=== PATIENT | female | born 1965 ===

== ENCOUNTER 2017-12-06 14:19 | Inpatient (IN) | payer OTHER ==
[~2017-12-06] VITALS: Ht 162.6 cm; Wt 59.9 kg
--- NOTE | 2017-12-06 19:14 | NUR ---
Pt arrived on unit via ambulance, on gurney accompanied by 2 EMT's. KEISHA x 4, at bedside. Verbally responsive and able to make needs known. No acute distress noted. Admitted for R hip fracture with mariam placement on 12/03/2017 s/p fall. All safety measures and fall precautions maintained. Call light and all personal belongings within reach. C/O right hip pain 5/[address] Tamayo and Dr. Oh made aware of pt arrival and Dr. Oh made aware of med reconciliation. V/S upon admission 115/75, HR 99, 98.3 F, RR 20, 96% RA. Addendum: 12/07/17 at 0046 by Sheldon Rai RN Continuing contact isolation for MRSA nares from [facility].
[2017-12-06 20:00] VITALS: BP 115/75
[2017-12-06] MEDS ORDERED: Z GUARD REMEDY PASTE 57 GM TUBE TOP PRN (20:00)
[2017-12-06] MEDS ORDERED: MAG-55 PO (20:23)
[2017-12-06] MEDS ORDERED: SENN-18 PO (20:23)
[2017-12-06] MEDS ORDERED: ZOLP5TAB8 PO (20:23)
[2017-12-06] MEDS ORDERED: ZINC220C8 PO (20:23)
[2017-12-06] MEDS ORDERED: OXYC5TAB3 PO (20:23)
[2017-12-06] MEDS ORDERED: TIZA4TAB11 PO (20:23)
[2017-12-06] MEDS ORDERED: MAGN400O6 PO (20:23)
[2017-12-06] MEDS ORDERED: BACL20TA PO (20:23)
[2017-12-06] MEDS ORDERED: RIVA20TA PO (20:23)
[2017-12-06] MEDS ORDERED: MULT-24 PO (20:23)
[2017-12-06] MEDS ORDERED: PANT40TA2 PO (20:23)
[2017-12-06] MEDS ORDERED: ACET-2154 PO (20:23)
[2017-12-06] MEDS ORDERED: NICO-672 TD (20:23)
[2017-12-06] MEDS ORDERED: DOCU100C36 PO (20:23)
[2017-12-06] MEDS ORDERED: OXYB5SYR2 PO (20:23)
[2017-12-06] MEDS ORDERED: TRAM50TA2 PO (20:23)
[2017-12-06] MEDS ORDERED: ACETAMINOPHEN 325 MG TABLET PO PRN (23:15)
[2017-12-06] MEDS ORDERED: MAGNESIUM HYDROXIDE 30 ML LIQUID UDC PO PRN (23:15)
[2017-12-06] MEDS ORDERED: OXYCODONE HCL 5 MG TABLET PO PRN (23:15)
[2017-12-06] MEDS ORDERED: Medication Not On Formulary EA (Mag Hydrox/Al Hydrox/Simeth (Maalox Max Strength Susp) 3 PO SCH (23:15)
[2017-12-06] MEDS: BACLOFEN 20 MG TABLET PO SCH (23:45)
[2017-12-06] MEDS: TRAMADOL HCL 50 MG TABLET PO PRN (23:45)
[2017-12-06] MEDS ORDERED: TRAMADOL HCL 50 MG TABLET ONE (23:56)
[2017-12-06] MEDS ORDERED: BACLOFEN 20 MG TABLET ONE (23:59)
[2017-12-07] MEDS ORDERED: OXYCODONE HCL 5 MG TABLET ONE (01:44)
[2017-12-07] MEDS: TRAMADOL HCL 50 MG TABLET PO PRN (06:02)
[2017-12-07] MEDS ORDERED: TRAMADOL HCL 50 MG TABLET ONE (06:14)
[2017-12-07] MEDS: PANTOPRAZOLE SODIUM 40 MG TABLET.DR PO SCH (07:11)
[2017-12-07] MEDS ORDERED: MAG HYDROX/AL HYDROX/SIMETH 30 ML LIQUID UDC PO PRN (07:15)
[2017-12-07 08:43] VITALS: BP 127/68
[2017-12-07] MEDS: OXYCODONE HCL 10 MG TAB.SR.12H PO SCH ×2 (08:46→20:49)
[2017-12-07] MEDS: HYDROMORPHONE HCL 2 MG TABLET PO PRN ×4 (08:47→21:35)
[2017-12-07] MEDS ORDERED: PANTOPRAZOLE SODIUM 40 MG TABLET.DR PO SCH (09:00)
[2017-12-07] MEDS: MULTIVITAMINS,THERAPEUTIC TABLET PO SCH (09:33)
[2017-12-07] MEDS: ZINC SULFATE 220 MG CAPSULE PO SCH (09:34)
[2017-12-07] MEDS: OXYBUTYNIN CHLORIDE 5 MG TABLET PO SCH ×2 (09:34→20:49)
[2017-12-07] MEDS: TIZANIDINE HCL 4 MG TABLET PO SCH ×3 (09:35→17:13)
[2017-12-07] MEDS: BACLOFEN 20 MG TABLET PO SCH ×4 (09:35→20:49)
[2017-12-07] MEDS: SENNOSIDES 1 TABLET PO PRN (09:36)
[2017-12-07] MEDS: DOCUSATE SODIUM 100 MG CAPSULE PO PRN (09:39)
[2017-12-07] MEDS: NICOTINE 21 MG/24HR PATCH TD SCH (09:40)
--- NOTE | 2017-12-07 12:12 | NUR ---
WOUND CARE CONSULT: PT PRESENTS WITH SURGICAL INCISIONS WHICH ARE CLOSED TO RT HIP AND THIGH. PT ALSO NOTED TO HAVE SURGICAL SCAR TO BACK AND LARGE SCAR TO SACRUM WITH FRAGILE BONY AREA, PRESENT ON ADMISSION. ALL SKIN PROTECTION MEASURES IN PLACE AND DISCUSSED WITH NURSING STAFF. CONCUR WITH CURRENT PROTECTION OF SURGICAL INCISIONS. RECOMMEND FIRST STEP MATTRESS. WILL SEE PRN. MARTÍNEZ IN AGREEMENT WITH PLAN OF CARE. Addendum: 12/07/17 at 1217 by YEIMY GOINS RN PT IS PARAPLEGIC.
[2017-12-07] MEDS ORDERED: Medication Not On Formulary EA (Rivaroxaban (Xarelto) 10 MG) PO SCH (17:00)
--- NOTE | 2017-12-07 18:00 | NUR ---
Patient was stable all throughout the day shift, she received new orders for pain medicine noted and carried out, was seen and examined by wound nurse with new orders noted and carried out. Patient has a chamorro catheter, draining well with no sediments noted, patient had no signs and no symptom of discomfort at this time, pain management priovided all throughout the shift as needed per MDs order, needs attended promptly, due medications given, call light in easy reach.
[2017-12-07] MEDS: RIVAROXABAN 10 MG TABLET PO SCH (18:34)
--- NOTE | 2017-12-07 19:35 | NUR ---
Received patient resting comfortably in bed and watching TV. AAO x4. Family at bedside. Able to make needs known. No acute distress noted. No c/o pain or discomfort at this time. Safety measures maintained. Call light and personal belongings within reach. Will continue to monitor.
[2017-12-07 20:00] VITALS: BP 135/92
[2017-12-07] MEDS: ZOLPIDEM 5 MG TABLET PO PRN (23:15)
[2017-12-08] MEDS: HYDROMORPHONE HCL 2 MG TABLET PO PRN ×5 (03:59→21:43)
--- NOTE | 2017-12-08 05:43 | NUR ---
Patient slept intermittently at night but patient stated that she slept better than other nights. Rankin catheter draining well, with yellow colored urine. Meds given as prescribed. All needs attended to promptly. Will endorse to day shift RN. Continue to monitor.
[2017-12-08] MEDS: PANTOPRAZOLE SODIUM 40 MG TABLET.DR PO SCH (06:42)
[2017-12-08] MEDS: MULTIVITAMINS,THERAPEUTIC TABLET PO SCH (08:37)
[2017-12-08] MEDS: OXYBUTYNIN CHLORIDE 5 MG TABLET PO SCH ×2 (08:38→21:35)
[2017-12-08] MEDS: TIZANIDINE HCL 4 MG TABLET PO SCH ×3 (08:38→17:16)
[2017-12-08] MEDS: BACLOFEN 20 MG TABLET PO SCH ×4 (08:38→21:35)
[2017-12-08] MEDS: OXYCODONE HCL 10 MG TAB.SR.12H PO SCH (08:39)
[2017-12-08] MEDS: NICOTINE 21 MG/24HR PATCH TD SCH (08:39)
[2017-12-08] MEDS: ZINC SULFATE 220 MG CAPSULE PO SCH (08:43)
[2017-12-08 08:53] VITALS: BP 117/81
--- NOTE | 2017-12-08 09:56 | NUR ---
SBAR report received, board updated. Pt awake, alert, and oriented x4. Pt assessed to have moderate pain 6-7/10 r/t Right hip surgical site, no SOB or acute distress otherwise. Pt compliant with all routine morning medication, refused Zinc reports no long part of her daily regiment, Dilaudid administered per Q4hr PRN pain orders. Pt sitting comfortably in semi-fowlers to eat breakfast. Pt expresses eagerness to participate in all scheduled therapies for today. All comfort and safety measures met at this time. Personal items and call light within reach. Will continue to monitor.
[2017-12-08] MEDS: RIVAROXABAN 10 MG TABLET PO SCH (17:21)
--- NOTE | 2017-12-08 17:49 | NUR ---
Pt sitting up comfortably in semi-fowlers position on specialty mattress, anticipating arrival of her . Pt reports severe pain and Dilaudid administered per PRN orders along with routine medications as scheduled. Surgical site dressing changed and mepilex applied due to soiling. Call light and personal items placed within reach and Pt reminded to use for all needs. Comfort and safety measures met at this time. Will continue to monitor and endorse to night patrol inspector.
--- NOTE | 2017-12-08 18:31 | NUR ---
Micro results confirmed no active MRSA in nares at this time. MD notified. No longer a need for contact isolation precautions. Will endorse to on coming shift.
[2017-12-08] MEDS: OXYCODONE HCL 20 MG TAB.SR.12H PO SCH (21:35)
[2017-12-08 21:37] VITALS: BP 111/67
[2017-12-09] MEDS: HYDROMORPHONE HCL 2 MG TABLET PO PRN ×5 (01:43→23:45)
--- NOTE | 2017-12-09 03:32 | NUR ---
Change of assignment. Patient sleeping comfortably in bed. No acute distress noted. No c/o pain or discomfort. Safety measures maintained. Call light and personal belongings within reach. Will continue to monitor.
--- NOTE | 2017-12-09 05:52 | NUR ---
Patient slept intermittently at night. Rankin catheter intact and draining well with yellow colored urine. Able to make needs known. C/o pain, followed up with interventions. All needs attended to promptly. Will endorse to day shift RN. Continue to monitor.
[2017-12-09] MEDS: PANTOPRAZOLE SODIUM 40 MG TABLET.DR PO SCH (06:17)
[2017-12-09] MEDS: OXYCODONE HCL 20 MG TAB.SR.12H PO SCH ×3 (06:17→21:33)
--- NOTE | 2017-12-09 06:24 | NUR ---
Patient in a lot of pain. Meds given and other interventions followed. Patient does not want to be disturb at this time and refused checking incision site and sacral. Will follow up. Continue to monitor.
[2017-12-09 08:00] VITALS: BP 116/70
--- NOTE | 2017-12-09 08:00 | NUR ---
Received patient awake, verbally responsive, coherent, not in any form of acute distress. She denies any pain or discomfort at this time. Call light placed within reach. Reminded to use call light for assistance with verbalized understanding. Assisted to her needs.
[2017-12-09] MEDS: MULTIVITAMINS,THERAPEUTIC TABLET PO SCH (08:48)
[2017-12-09] MEDS: OXYBUTYNIN CHLORIDE 5 MG TABLET PO SCH ×2 (08:48→20:39)
[2017-12-09] MEDS: BACLOFEN 20 MG TABLET PO SCH ×4 (08:50→20:40)
[2017-12-09] MEDS: TIZANIDINE HCL 4 MG TABLET PO SCH ×3 (08:50→18:54)
[2017-12-09] MEDS: ZINC SULFATE 220 MG CAPSULE PO SCH (08:50)
[2017-12-09] MEDS: NICOTINE 21 MG/24HR PATCH TD SCH (08:51)
[2017-12-09 09:27] LABS: BASOPHILS % (AUTO) 0.4 % (0.0-2.0); EOSINOPHILS # (AUTO) 0.4 K/uL (0.0-0.7); EOSINOPHILS % (AUTO) 4.7 % (0.0-7.0); HEMATOCRIT 28.4 % (31.2-41.9); HEMOGLOBIN 9.8 g/dL (10.9-14.3); LYMPHOCYTES % (AUTO) 25.8 % (20.5-51.5); MEAN CORPUSCULAR HEMOGLOBIN 31.7 uug (24.7-32.8); MEAN CORPUSCULAR HGB CONC 35 g/dL (32.3-35.6); MEAN CORPUSCULAR VOLUME 91.8 fL (75.5-95.3); MONOCYTES # (AUTO) 0.7 K/uL (2.0-10.0); MONOCYTES % (AUTO) 8.5 % (0.0-11.0); NEUTROPHILS # (AUTO) 4.8 K/uL (1.8-8.9); NEUTROPHILS % (AUTO) 60.6 % (38.5-71.5); PLATELET COUNT (AUTO) 262 K/uL (179-408); WHITE BLOOD COUNT (AUTO) 7.9 K/uL (3.8-11.8)
[2017-12-09 09:43] LABS: THYROID STIMULATING HORMONE 1.862 mIU/mL (0.358-3.740)
[2017-12-09 10:04] LABS: ALANINE AMINOTRANSFERASE 22 U/L (14-59); ALKALINE PHOSPHATASE 160 U/L (50-136); ASPARTATE AMINOTRANSFERASE 21 U/L (15-37); BILIRUBIN,TOTAL 0.5 mg/dL (0.2-1.0); CARBON DIOXIDE 26 mmol/L (21-32); CHLORIDE 106 mmol/L (98-107); CHOLESTEROL 138 mg/dL (<200); CREATININE 0.5 mg/dL (0.6-1.3); GLUCOSE 97 mg/dL (74-106); HDL CHOLESTEROL 26 mg/dL (40-60); MAGNESIUM 1.7 mg/dL (1.8-2.4); PHOSPHOROUS 4.5 mg/dL (2.5-4.9); POTASSIUM 3.6 mmol/L (3.5-5.1); TOTAL PROTEIN, SERUM 6.9 g/dL (6.4-8.2); TRIGLYCERIDES 103 MG/DL (30-150); UREA NITROGEN, BLOOD 5 mg/dL (7-18)
--- NOTE | 2017-12-09 13:37 | NUR ---
INTERDISCIPLINARY TEAM CONFERENCE
[2017-12-09] MEDS: RIVAROXABAN 10 MG TABLET PO SCH (18:40)
[2017-12-09] MEDS ORDERED: MAGNESIUM OXIDE 400 MG TABLET PO ONE (19:00)
--- NOTE | 2017-12-09 19:30 | NUR ---
Patient awake, verbalizes some pain on affected site. Encouraged to call for help whenever necessary. Call light within reach. Will continue to monitor.
[2017-12-09 19:57] VITALS: BP 111/67
[2017-12-09] MEDS: ZOLPIDEM 5 MG TABLET PO PRN (21:34)
--- NOTE | 2017-12-10 06:05 | NUR ---
Patient sleeping with no s/s of distress. Reported tolerable pain but verbalized some relief after interventions. Manifested a pleasant disposition. Awake most of the shift. Call light kept within reach. Kept comfortable. Due meds given. Needs attended. Frequent checks done to ensure safety. Endorsed accordingly.
[2017-12-10] MEDS: PANTOPRAZOLE SODIUM 40 MG TABLET.DR PO SCH (06:46)
[2017-12-10] MEDS: OXYCODONE HCL 20 MG TAB.SR.12H PO SCH ×3 (06:47→22:04)
[2017-12-10 07:30] VITALS: BP 116/77
--- NOTE | 2017-12-10 07:45 | NUR ---
Received patient asleep, easily arousable, not in any form of acute distress. No noted signs of pain or any discomfort at this time. Call light placed within reach.
[2017-12-10] MEDS: TIZANIDINE HCL 4 MG TABLET PO SCH ×3 (08:47→18:03)
[2017-12-10] MEDS: MULTIVITAMINS,THERAPEUTIC TABLET PO SCH (08:47)
[2017-12-10] MEDS: BACLOFEN 20 MG TABLET PO SCH ×4 (08:47→21:01)
[2017-12-10] MEDS: OXYBUTYNIN CHLORIDE 5 MG TABLET PO SCH ×2 (08:48→21:00)
[2017-12-10] MEDS: CYANOCOBALAMIN 1000 MCG/ML VIAL IM SCH (08:48)
[2017-12-10] MEDS: ZINC SULFATE 220 MG CAPSULE PO SCH (08:48)
[2017-12-10] MEDS: NICOTINE 21 MG/24HR PATCH TD SCH (08:48)
[2017-12-10] MEDS: HYDROMORPHONE HCL 2 MG TABLET PO PRN ×2 (08:51→18:39)
[2017-12-10] MEDS: RIVAROXABAN 10 MG TABLET PO SCH (18:07)
--- NOTE | 2017-12-10 19:30 | NUR ---
Received patient sleeping, no s/s of distress. Respirations even and unlabored. Call light within reach. Will continue to monitor.
[2017-12-10] MEDS: SENNOSIDES 1 TABLET PO PRN (21:01)
[2017-12-10] MEDS: ZOLPIDEM 5 MG TABLET PO PRN (21:01)
[2017-12-10 21:06] VITALS: BP 104/60
--- NOTE | 2017-12-11 05:54 | NUR ---
Patient asleep with no s/s of distress. Respirations even and unlabored. Verbalized some relief after pain intervention. Slept well. Due meds given. Needs attended. Call light kept within reach. Frequent checks done. Endorsed accordingly.
[2017-12-11] MEDS: PANTOPRAZOLE SODIUM 40 MG TABLET.DR PO SCH (06:21)
[2017-12-11] MEDS: OXYCODONE HCL 20 MG TAB.SR.12H PO SCH ×3 (06:22→21:06)
[2017-12-11 08:00] VITALS: BP 122/77
[2017-12-11] MEDS: ZINC SULFATE 220 MG CAPSULE PO SCH (08:20)
[2017-12-11] MEDS: TIZANIDINE HCL 4 MG TABLET PO SCH ×3 (08:20→17:12)
[2017-12-11] MEDS: BACLOFEN 20 MG TABLET PO SCH ×4 (08:21→21:05)
[2017-12-11] MEDS: MULTIVITAMINS,THERAPEUTIC TABLET PO SCH (08:21)
[2017-12-11] MEDS: NICOTINE 21 MG/24HR PATCH TD SCH (08:22)
[2017-12-11] MEDS: HYDROMORPHONE HCL 2 MG TABLET PO PRN ×3 (08:23→17:30)
[2017-12-11] MEDS: OXYBUTYNIN CHLORIDE 5 MG TABLET PO SCH ×2 (08:26→21:05)
[2017-12-11] MEDS: CYANOCOBALAMIN 1000 MCG/ML VIAL IM SCH (08:28)
[2017-12-11] MEDS: RIVAROXABAN 10 MG TABLET PO SCH (17:10)
--- NOTE | 2017-12-11 17:41 | NUR ---
Patient is alert and oriented, able to make her needs known, she is not in any form of distress, although she was given pain intervention althrough out the shift, she verbalizes pain relief and was able to actively participate with her therapeutic exercises.Encouraged patient to increase fluid intake as tolerated to prevent constipation. Patient has an indwelling chamorro catheter, patent and intact, draining well with yellow colored urine noted at this time, no sedimentation noted, she denies pain nor discomfort from the chamorro catheter. Patient is on first step mattress for skin integrity protection, skin is intact and dry, encouraged patient to turn and reposition for pressure relief. All belongings and call light placed within easy reach. Patient kept clean and dry, needs attended promptly.
--- NOTE | 2017-12-11 19:53 | NUR ---
Received patient resting comfortably in bed. AAO X4. Family at bedside. No acute distress noted. No c/o pain or discomfort at this time. Rankin catheter draining well. On first step mattress. Turning and reposition encouraged, will implement. Call light and personal belongings within reach. Will continue to monitor.
[2017-12-11 20:15] VITALS: BP 122/63
[2017-12-11] MEDS: SENNOSIDES 1 TABLET PO PRN (21:12)
[2017-12-11] MEDS: DOCUSATE SODIUM 100 MG CAPSULE PO PRN (21:12)
[2017-12-11] MEDS: ZOLPIDEM 5 MG TABLET PO PRN (21:12)
[2017-12-12] MEDS: HYDROMORPHONE HCL 2 MG TABLET PO PRN ×4 (04:32→20:21)
[2017-12-12] MEDS: PANTOPRAZOLE SODIUM 40 MG TABLET.DR PO SCH (06:49)
[2017-12-12] MEDS: OXYCODONE HCL 20 MG TAB.SR.12H PO SCH ×3 (06:49→21:15)
--- NOTE | 2017-12-12 07:15 | NUR ---
Patient slept intermittently at night. C/o pain on the right hip at 0430, followed up with intervention. Rankin catheter draining well with yellow colored urine. At 0710, patient showed both arms with redness. No pain and no itchiness. No SOB. Patient stated that she is okay and just want to know what it is. Will endorse to day shift RN to refer to .
--- NOTE | 2017-12-12 08:01 | NUR ---
Received patient awake, up on bed, verbally responsive, no dyspnea nor SOB. No complain of pain or any discomfort. Call light placed within reach. attended to her needs.
[2017-12-12] MEDS: ZINC SULFATE 220 MG CAPSULE PO SCH (09:01)
[2017-12-12] MEDS: TIZANIDINE HCL 4 MG TABLET PO SCH ×3 (09:01→17:23)
[2017-12-12] MEDS: BACLOFEN 20 MG TABLET PO SCH ×4 (09:01→21:14)
[2017-12-12] MEDS: MULTIVITAMINS,THERAPEUTIC TABLET PO SCH (09:01)
[2017-12-12] MEDS: CYANOCOBALAMIN 1000 MCG/ML VIAL IM SCH (09:01)
[2017-12-12] MEDS: NICOTINE 21 MG/24HR PATCH TD SCH (09:01)
[2017-12-12] MEDS: OXYBUTYNIN CHLORIDE 5 MG TABLET PO SCH ×2 (09:01→21:14)
[2017-12-12 11:01] VITALS: BP 123/72
[2017-12-12] MEDS: RIVAROXABAN 10 MG TABLET PO SCH (17:25)
--- NOTE | 2017-12-12 18:35 | NUR ---
Received an order from Dr. Tamayo for Senokot 2 tabs daily QHS and dulcolax 10mg PO one time dose for no BM x 3 days. Order carried out. Patient made aware.
[2017-12-12] MEDS ORDERED: BISACODYL 5 MG TABLET.DR PO ONE (19:00)
[2017-12-12 19:30] VITALS: BP 114/71
--- NOTE | 2017-12-12 19:30 | NUR ---
Received patient from day shift nurse. shift report at bedside. patient lying in bed comfortably at start of shift with no acute distress. vital signs stable at start of shift. pertinent assessment completed. environmental safety check done at start of shift. bed in low position x2 side rails up. chamorro cath bag off the floor & below level of bladder. call light placed within reach of pt. will continue to monitor pt through shift.
[2017-12-12] MEDS: SENNOSIDES 1 TABLET PO SCH (21:14)
[2017-12-12] MEDS: ZOLPIDEM 5 MG TABLET PO PRN (21:15)
[2017-12-13] MEDS: HYDROMORPHONE HCL 2 MG TABLET PO PRN ×5 (02:52→20:35)
--- NOTE | 2017-12-13 05:51 | NUR ---
patient had right hip pain x2 during the shift. all pain meds administered as ordered per md. vital signs stable through shift. all needs attended to. all meds administered as ordered per md. No BM since x1 dose of dulcolax given. will endorse to day shift nurse to continue to monitor for BM & call MD if no BM. call light within reach of pt. safety measures implemented. will endorse to day shift nurse.
[2017-12-13] MEDS: OXYCODONE HCL 20 MG TAB.SR.12H PO SCH ×3 (06:05→21:51)
[2017-12-13] MEDS: PANTOPRAZOLE SODIUM 40 MG TABLET.DR PO SCH (06:05)
--- NOTE | 2017-12-13 09:00 | NUR ---
Received patient, awake alert x4. With pain over right hip rated as 7/10. PRN Dilaudid PRN given. Intact Rankin Catheter draining to yellow colored urine. Call light within reach.
[2017-12-13] MEDS: ZINC SULFATE 220 MG CAPSULE PO SCH (09:14)
[2017-12-13] MEDS: OXYBUTYNIN CHLORIDE 5 MG TABLET PO SCH ×2 (09:14→20:36)
[2017-12-13] MEDS: MULTIVITAMINS,THERAPEUTIC TABLET PO SCH (09:14)
[2017-12-13] MEDS: BACLOFEN 20 MG TABLET PO SCH ×4 (09:14→20:35)
[2017-12-13] MEDS: TIZANIDINE HCL 4 MG TABLET PO SCH ×3 (09:14→16:50)
[2017-12-13] MEDS: CYANOCOBALAMIN 1000 MCG/ML VIAL IM SCH (09:15)
[2017-12-13] MEDS: NICOTINE 21 MG/24HR PATCH TD SCH (09:16)
[2017-12-13 09:58] VITALS: BP 109/65
--- NOTE | 2017-12-13 10:14 | NUR ---
Morning care done. Resting in bed, putting on make-up. No complaints of pain at this time.
--- NOTE | 2017-12-13 15:05 | NUR ---
Rankin catheter changed. Still with pain over right hip rated as 6/10.
[2017-12-13] MEDS: RIVAROXABAN 10 MG TABLET PO SCH (17:42)
--- NOTE | 2017-12-13 18:13 | NUR ---
Patient resting in bed. With minimal tolerable pain over right hip. Dressing changed done.
--- NOTE | 2017-12-13 18:32 | NUR ---
Prune juice given this AM. Still with no BM. MOM PRN given.
[2017-12-13 19:30] VITALS: BP 120/78
--- NOTE | 2017-12-13 19:30 | NUR ---
patient lying in bed comfortably at start of shift. no signs of acute distress. vital signs stable. was endorsed by day shift nurse that pt still has not had a BM during the day. MOM was given during day shift. will continue to monitor for BM during the shift. pertinent assessment completed. chamorro cath draining urine yellow colored. chamorro bag hanging on the side of bed off the floor and below level of the bladder. call light placed within reach of pt. encouraged pt to use call light when in need of assistance. environmental safety check completed in pt room. will continue to monitor pt through shift.
[2017-12-13] MEDS: SENNOSIDES 1 TABLET PO SCH (20:35)
[2017-12-13] MEDS: ZOLPIDEM 5 MG TABLET PO PRN (21:51)
[2017-12-14] MEDS: HYDROMORPHONE HCL 2 MG TABLET PO PRN ×4 (02:16→17:40)
--- NOTE | 2017-12-14 05:44 | NUR ---
Patient stable through shift. no acute distress noted. complaints of right hip pain during the shift. pain meds administered as ordered per md. vital signs stable through shift. pt still noted with constipation. no bm during the shift. pt feels that chamorro cath is leaking since diaper was soaked with urine. checked chamorro bag for urine draining & assessed chamorro tubing for any signs of leakage. chamorro intact no leakage noted. diaper changed and pt provided with routine skin care. all needs attended to. all medication administered as ordered per md. safety measures implemented. call light within reach of pt. will endorse to day shift nurse.
[2017-12-14] MEDS: PANTOPRAZOLE SODIUM 40 MG TABLET.DR PO SCH (06:11)
[2017-12-14] MEDS: OXYCODONE HCL 20 MG TAB.SR.12H PO SCH ×3 (06:11→21:38)
--- NOTE | 2017-12-14 07:45 | NUR ---
Patient noted laying in bed watching tv, complains of pain 5/10, no signs of distress, states catheter was leaking last night but reports this occurrence of leakage has stopped this morning, call light in reach, bed locked and in lowest position, all needs met at this time
[2017-12-14 08:24] VITALS: BP 113/84
[2017-12-14] MEDS: ZINC SULFATE 220 MG CAPSULE PO SCH (08:36)
[2017-12-14] MEDS: TIZANIDINE HCL 4 MG TABLET PO SCH ×3 (08:36→17:40)
[2017-12-14] MEDS: OXYBUTYNIN CHLORIDE 5 MG TABLET PO SCH ×2 (08:36→20:49)
[2017-12-14] MEDS: NICOTINE 21 MG/24HR PATCH TD SCH (08:37)
[2017-12-14] MEDS: CYANOCOBALAMIN 1000 MCG/ML VIAL IM SCH (08:37)
[2017-12-14] MEDS: BACLOFEN 20 MG TABLET PO SCH ×4 (08:37→20:49)
[2017-12-14] MEDS: MULTIVITAMINS,THERAPEUTIC TABLET PO SCH (08:37)
[2017-12-14] MEDS: RIVAROXABAN 10 MG TABLET PO SCH (17:38)
--- NOTE | 2017-12-14 19:30 | NUR ---
Patient lying in bed comfortably at start of shift with no signs of sob or acute distress. Pertinent assessment completed. pt is a/o x4, vital signs stable at start of shift. Rankin cath checked, urine flowing through yellow in color. Rankin bag off the floor and below level of bladder. call light placed within reach of pt. will continue to monitor pt through shift.
[2017-12-14 20:43] VITALS: BP 127/81
[2017-12-14] MEDS: SENNOSIDES 1 TABLET PO SCH (20:49)
[2017-12-14] MEDS: ZOLPIDEM 5 MG TABLET PO PRN (21:38)
[2017-12-15] MEDS: HYDROMORPHONE HCL 2 MG TABLET PO PRN ×5 (01:40→21:33)
--- NOTE | 2017-12-15 05:43 | NUR ---
Patient slept intermittently through shift. complained of right hip pain. administered pain meds as ordered per md. pt able to make needs known. all meds administered as ordered per md. vital signs stable through shift. safety measures implemented. call light within reach of pt. will endorse to day shift nurse.
[2017-12-15] MEDS: OXYCODONE HCL 20 MG TAB.SR.12H PO SCH ×3 (06:12→22:57)
[2017-12-15] MEDS: PANTOPRAZOLE SODIUM 40 MG TABLET.DR PO SCH (06:12)
[2017-12-15 08:00] VITALS: BP 130/77
[2017-12-15] MEDS: ZINC SULFATE 220 MG CAPSULE PO SCH (08:51)
[2017-12-15] MEDS: OXYBUTYNIN CHLORIDE 5 MG TABLET PO SCH ×2 (08:51→21:33)
[2017-12-15] MEDS: TIZANIDINE HCL 4 MG TABLET PO SCH ×3 (08:51→17:01)
[2017-12-15] MEDS: NICOTINE 21 MG/24HR PATCH TD SCH (08:51)
[2017-12-15] MEDS: CYANOCOBALAMIN 1000 MCG/ML VIAL IM SCH (08:52)
[2017-12-15] MEDS: MULTIVITAMINS,THERAPEUTIC TABLET PO SCH (08:52)
[2017-12-15] MEDS: BACLOFEN 20 MG TABLET PO SCH ×4 (08:52→21:33)
[2017-12-15] MEDS: RIVAROXABAN 10 MG TABLET PO SCH (17:00)
--- NOTE | 2017-12-15 19:50 | NUR ---
Received pt in bed, AAO x 4. Verbally responsive and able to make needs known. Denies pain or discomfort at this time. No acute distress noted. All safety measures and fall precautions maintained. Call light and all personal belongings within reach. Will continue to monitor.
[2017-12-15 20:51] VITALS: BP 123/68
[2017-12-15] MEDS: SENNOSIDES 1 TABLET PO SCH (21:31)
[2017-12-15] MEDS: DOCUSATE SODIUM 100 MG CAPSULE PO PRN (21:33)
[2017-12-15] MEDS: ZOLPIDEM 5 MG TABLET PO PRN (22:57)
[2017-12-16] MEDS: HYDROMORPHONE HCL 2 MG TABLET PO PRN ×4 (02:34→20:06)
[2017-12-16] MEDS: PANTOPRAZOLE SODIUM 40 MG TABLET.DR PO SCH (06:57)
[2017-12-16] MEDS: OXYCODONE HCL 20 MG TAB.SR.12H PO SCH ×3 (06:57→21:31)
[2017-12-16 08:00] VITALS: BP 122/82
[2017-12-16] MEDS: MULTIVITAMINS,THERAPEUTIC TABLET PO SCH (08:43)
[2017-12-16] MEDS: CYANOCOBALAMIN 1000 MCG/ML VIAL IM SCH (08:43)
[2017-12-16] MEDS: ZINC SULFATE 220 MG CAPSULE PO SCH (08:43)
[2017-12-16] MEDS: BACLOFEN 20 MG TABLET PO SCH ×4 (08:44→20:06)
[2017-12-16] MEDS: OXYBUTYNIN CHLORIDE 5 MG TABLET PO SCH ×2 (08:44→20:06)
[2017-12-16] MEDS: TIZANIDINE HCL 4 MG TABLET PO SCH ×3 (08:44→17:13)
[2017-12-16] MEDS: NICOTINE 21 MG/24HR PATCH TD SCH (08:44)
--- NOTE | 2017-12-16 10:00 | NUR ---
Received patient in bed, alert/oriented x 4. Verbally responsive and able to make needs known. Denies pain or discomfort at this time. No acute distress, no respiratory distress noted. All safety measures and fall precautions maintained. Call light and all personal belongings within reach. Will continue to monitor.
--- NOTE | 2017-12-16 13:38 | NUR ---
Last Model Maker: Biopsychosocial Assessment Bio: SW met with patient at beside to assess for needs and provide support. Patient is a 52-year-old female admitted to ARU due to functional decline and impaired mobility after hip surgery. Patient has a history of thoracic spinal cord injury with paraplegia and neurogenic bladder due to compression fracture about a year ago. Patient stated that she has been paralyzed since last December, but started getting movement and had been getting support to walk again. However, she fell and broke her hip. Mental Status: Patient appeared alert and oriented x4 during interview. She presented in a motivated mood, but reported that she felt tired from physical therapy. Patient has been in the hospital since December 06, 2017. Patient is pleasant, calm, and cooperative. Per patient's chart, she has a history of depression. Patient appears to be coping well with her hospitalization and therapies. Social: Patient lives at home with her . Patient reports that her is very supportive. He built her hand rails to help her when she returns home. Patient reported that she has "all the equipment at home". Goals: Pt reported that she wants support in getting in home health care and information on possible mobile physician assistants that can come to her home. Interventions: SW engaged in active listening. SW provided emotional support and counseling. SW will connect patient to case management to discuss discharge needs, such as home health. SW will encourage pt to comply with rehab goals.
--- NOTE | 2017-12-16 13:44 | NUR ---
INTERDISCIPLINARY TEAM CONFERENCE
--- NOTE | 2017-12-16 13:55 | NUR ---
INTERDISCIPLINARY TEAM CONFERENCE
--- NOTE | 2017-12-16 15:48 | NUR ---
SBAR report received from Dong ALCARAZ of day shift. Pt Board updated. Pt currently working with PT in the gym, reports pain to be managed at a tolerable level at this time. All safety needs met at this time. Will continue to monitor.
[2017-12-16] MEDS: RIVAROXABAN 10 MG TABLET PO SCH (17:19)
--- NOTE | 2017-12-16 18:54 | NUR ---
Pt ate 100% of dinner, with visiting at bedside currently. All safety and comfort measures met at this time. Bed in locked and lowest position, with side rails up. Pt denies any pain or discomfort, since managed through pain medication. Pt had a large BMx1. Call light and personal items placed within reach. Will continue to monitor and endorse to on coming car shifter.
[2017-12-16] MEDS: SENNOSIDES 1 TABLET PO SCH (20:06)
[2017-12-16] MEDS: DOCUSATE SODIUM 100 MG CAPSULE PO PRN (20:15)
[2017-12-16 20:35] VITALS: BP 129/87
[2017-12-16] MEDS: ZOLPIDEM 5 MG TABLET PO PRN (21:32)
[2017-12-17] MEDS: HYDROMORPHONE HCL 2 MG TABLET PO PRN ×4 (01:18→19:05)
[2017-12-17] MEDS: OXYCODONE HCL 20 MG TAB.SR.12H PO SCH ×3 (05:10→21:10)
--- NOTE | 2017-12-17 05:40 | NUR ---
Patient slept intermittently at night. C/o pain, followed with interventions. No acute distress noted. Meds given and pt has been compliant. Surgical site, clean and dry. No s/s of infection. Safety measures maintained. Call light and personal belongings within reach. Will endorse to day shift RN. Continue to monitor.
[2017-12-17] MEDS: PANTOPRAZOLE SODIUM 40 MG TABLET.DR PO SCH (06:40)
--- NOTE | 2017-12-17 07:50 | NUR ---
Received patient asleep, easily arousable, not in any form of acute distress. No noted signs or symptoms of pain or discomfort. Call light placed within reach.
[2017-12-17 08:56] VITALS: BP 126/68
[2017-12-17] MEDS: MULTIVITAMINS,THERAPEUTIC TABLET PO SCH (09:14)
[2017-12-17] MEDS: ZINC SULFATE 220 MG CAPSULE PO SCH (09:14)
[2017-12-17] MEDS: BACLOFEN 20 MG TABLET PO SCH ×4 (09:14→21:09)
[2017-12-17] MEDS: OXYBUTYNIN CHLORIDE 5 MG TABLET PO SCH ×2 (09:14→21:11)
[2017-12-17] MEDS: NICOTINE 21 MG/24HR PATCH TD SCH (09:14)
[2017-12-17] MEDS: TIZANIDINE HCL 4 MG TABLET PO SCH ×3 (09:14→18:13)
[2017-12-17] MEDS: CYANOCOBALAMIN 1000 MCG/ML VIAL IM SCH (09:14)
[2017-12-17] MEDS: RIVAROXABAN 10 MG TABLET PO SCH (18:22)
--- NOTE | 2017-12-17 19:40 | NUR ---
Pt resting comfortably in bed and watching TV. AAO x4. Rankin catheter intact and draining well. Room air. No acute distress noted. Mild pain on the right hip. Will follow up with intervention. Safety measures maintained. Call light and personal belongings within reach. Will continue to monitor.
[2017-12-17 20:33] VITALS: BP 115/66
[2017-12-17] MEDS: SENNOSIDES 1 TABLET PO SCH (21:09)
[2017-12-17] MEDS: ZOLPIDEM 5 MG TABLET PO PRN (21:10)
[2017-12-18] MEDS: HYDROMORPHONE HCL 2 MG TABLET PO PRN ×4 (00:28→18:55)
--- NOTE | 2017-12-18 04:59 | NUR ---
Patient slept intermittently at night. Meds given per MD's order. Pt has been compliant. Vital signs stable. All needs attended to promptly. Will endorse to day shift RN. Continue to monitor.
[2017-12-18] MEDS: OXYCODONE HCL 20 MG TAB.SR.12H PO SCH ×3 (05:36→22:00)
--- NOTE | 2017-12-18 06:07 | NUR ---
Patient does not want to take Protonix at this time. She wants to take it before breakfast around 0730. Will endorse to day shift RN.
[2017-12-18 08:01] VITALS: BP 114/66
[2017-12-18] MEDS: PANTOPRAZOLE SODIUM 40 MG TABLET.DR PO SCH (08:06)
[2017-12-18] MEDS: NICOTINE 21 MG/24HR PATCH TD SCH (09:05)
[2017-12-18] MEDS: ZINC SULFATE 220 MG CAPSULE PO SCH (09:07)
[2017-12-18] MEDS: BACLOFEN 20 MG TABLET PO SCH ×4 (09:07→20:40)
[2017-12-18] MEDS: MULTIVITAMINS,THERAPEUTIC TABLET PO SCH (09:07)
[2017-12-18] MEDS: TIZANIDINE HCL 4 MG TABLET PO SCH ×3 (09:07→17:33)
[2017-12-18] MEDS: OXYBUTYNIN CHLORIDE 5 MG TABLET PO SCH ×2 (09:07→20:41)
[2017-12-18] MEDS: CYANOCOBALAMIN 1000 MCG/ML VIAL IM SCH (09:08)
[2017-12-18] MEDS: RIVAROXABAN 10 MG TABLET PO SCH (17:35)
--- NOTE | 2017-12-18 17:50 | NUR ---
Patient is awake anf alert, not in acute distress, denies discomfort at this time. All throughout the shift she was provided with pain management routinely as ordered, and encouraged her to increase her fluid intake , to prevent constipation. She participated with her physical and occupational therapy sessions earlier in the day. She is on chamorro catheter and on a special mattress for skin management, encouraged her to turn and reposition for pressure relief, she remained overall compliant with her plan of care and verbalized understanding. Needs attended promptly, call light in reach.
[2017-12-18] MEDS: DOCUSATE SODIUM 100 MG CAPSULE PO PRN (18:57)
[2017-12-18] MEDS ORDERED: BISACODYL 5 MG TABLET.DR PO PRN (19:30)
--- NOTE | 2017-12-18 19:30 | NUR ---
Received pt in bed, AAO x 4 watching television. Verbally responsive and able to make needs known. Denies pain or discomfort at this time. No acute distress noted. Upon assessment, noted that her dressing on right hip was not on. Pt stated "it fell off during physical therapy". Dressing change done per MD order. No drainage, redness or swelling noted. Pt denies pain at site. All safety measures and fall precautions maintained. Call light and all personal belongings within reach. Will continue to monitor.
[2017-12-18 20:31] VITALS: BP 107/60
[2017-12-18 20:36] VITALS: BP 107/60
[2017-12-18] MEDS: SENNOSIDES 1 TABLET PO SCH (20:40)
[2017-12-18] MEDS: ZOLPIDEM 5 MG TABLET PO PRN (22:00)
[2017-12-19] MEDS: HYDROMORPHONE HCL 2 MG TABLET PO PRN ×3 (01:59→20:03)
[2017-12-19] MEDS: OXYCODONE HCL 20 MG TAB.SR.12H PO SCH ×3 (06:41→22:11)
[2017-12-19] MEDS: PANTOPRAZOLE SODIUM 40 MG TABLET.DR PO SCH (06:41)
[2017-12-19 07:57] VITALS: BP 128/75
[2017-12-19] MEDS: CYANOCOBALAMIN 1000 MCG/ML VIAL IM SCH (08:54)
[2017-12-19] MEDS: MULTIVITAMINS,THERAPEUTIC TABLET PO SCH (08:55)
[2017-12-19] MEDS: TIZANIDINE HCL 4 MG TABLET PO SCH ×3 (08:55→16:50)
[2017-12-19] MEDS: OXYBUTYNIN CHLORIDE 5 MG TABLET PO SCH ×2 (08:55→21:15)
[2017-12-19] MEDS: ZINC SULFATE 220 MG CAPSULE PO SCH (08:55)
[2017-12-19] MEDS: NICOTINE 21 MG/24HR PATCH TD SCH (08:56)
[2017-12-19] MEDS: BACLOFEN 20 MG TABLET PO SCH ×4 (08:56→21:15)
[2017-12-19] MEDS: DOCUSATE SODIUM 100 MG CAPSULE PO SCH ×2 (09:08→21:15)
[2017-12-19] MEDS ORDERED: BISACODYL 5 MG TABLET.DR PO PRN (11:00)
[2017-12-19] MEDS: RIVAROXABAN 10 MG TABLET PO SCH (17:02)
--- NOTE | 2017-12-19 17:28 | NUR ---
Patient is awake and alert X4 , not in acute distress, denies discomfort at this time. Throughout the shift she was provided with pain management routinely as ordered, and encouraged her to increase her fluid intake , to prevent constipation. She participated with her physical and occupational therapy sessions earlier in the day. She is on chamorro catheter and on a special mattress for skin management, encouraged her to turn and reposition for pressure relief, she remained overall compliant with her plan of care and verbalized understanding. Needs attended promptly, call light in reach.
--- NOTE | 2017-12-19 19:50 | NUR ---
Received pt in bed, AAO x 4 on her computer. Verbally responsive and able to make needs known. No acute distress noted. Denies pain or discomfort at this time. All safety measures and fall precautions maintained. Call light and all personal belongings within reach. Will continue to monitor.
[2017-12-19] MEDS: SENNOSIDES 1 TABLET PO SCH (21:15)
[2017-12-19 21:31] VITALS: BP 127/92
[2017-12-19] MEDS: ZOLPIDEM 5 MG TABLET PO PRN (22:11)
[2017-12-20] MEDS: OXYCODONE HCL 20 MG TAB.SR.12H PO SCH ×3 (06:55→21:15)
[2017-12-20] MEDS: PANTOPRAZOLE SODIUM 40 MG TABLET.DR PO SCH (06:55)
--- NOTE | 2017-12-20 07:09 | NUR ---
scallop dredger Dr. Martin Cornejo made aware regarding pts UACS result, ordered for contact isolation and meropenem 1g q8hr x 10days. However, pt is allergic to penicillin, made aware and states that it's okay to give. Order carried out. Addendum: 12/20/17 at 0712 by GERSON BARNES RN Will endorse to day shift nurse.
[2017-12-20] MEDS: MEROPENEM 1 G in IV NORMAL SALINE 100 ML IV SCH ×3 (08:00→21:06)
[2017-12-20 08:12] VITALS: BP 112/57
[2017-12-20] MEDS: ZINC SULFATE 220 MG CAPSULE PO SCH (08:26)
[2017-12-20] MEDS: OXYBUTYNIN CHLORIDE 5 MG TABLET PO SCH ×2 (08:26→21:06)
[2017-12-20] MEDS: MULTIVITAMINS,THERAPEUTIC TABLET PO SCH (08:26)
[2017-12-20] MEDS: CYANOCOBALAMIN 1000 MCG/ML VIAL IM SCH (08:26)
[2017-12-20] MEDS: TIZANIDINE HCL 4 MG TABLET PO SCH ×3 (08:26→17:21)
[2017-12-20] MEDS: DOCUSATE SODIUM 100 MG CAPSULE PO SCH ×2 (08:26→21:07)
[2017-12-20] MEDS: NICOTINE 21 MG/24HR PATCH TD SCH (08:26)
[2017-12-20] MEDS: BACLOFEN 20 MG TABLET PO SCH ×4 (08:26→21:07)
--- NOTE | 2017-12-20 09:30 | NUR ---
pt seen on rounding. pt continues to be alert and oriented. vitals stable. no new injuries upon report. pt will have iv inserted for iv antibiotics due to esbl on urine. pt requests to have it done after therapy. pt continues to complain of pain. pt given oxycodone. dilaudid was discontinued. will continue to monitor pt for complications.
--- NOTE | 2017-12-20 15:24 | NUR ---
midline inserted. missed a dose of merrem due to timing of medicine. will continue to monitor.
[2017-12-20] MEDS: RIVAROXABAN 10 MG TABLET PO SCH (17:21)
[2017-12-20] MEDS: HYDROMORPHONE HCL 2 MG TABLET PO PRN (19:20)
--- NOTE | 2017-12-20 19:26 | NUR ---
pt stable throuhgout rhe day. called md to continue dilaudid. md agreed. pt given dilaudid. will endorse to night guard nurse.
--- NOTE | 2017-12-20 19:30 | NUR ---
PT IN ROOM ALERT AWAKE AND ORIENTED. ABLE TO FOLLOW SIMPLE COMMANDS. STATES PAIN TO RIGHT HIP AREA. NO ACTIVE BLEEDING OR S/S OF INFECTION NOTED TO SURGICAL SITE. DRESSING IS INTACT. DENIES ANY SOB OR CHEST PAIN. CONTINUE TO MONITOR. ISOLATION MAINTAINED D/T ESBL OR URINE. CALL LIGHT PLACED WITHIN REACH.
[2017-12-20 20:44] VITALS: BP 128/83
[2017-12-20] MEDS: SENNOSIDES 1 TABLET PO SCH (21:07)
[2017-12-21] MEDS: HYDROMORPHONE HCL 2 MG TABLET PO PRN ×4 (00:18→21:13)
--- NOTE | 2017-12-21 01:00 | NUR ---
PT IN ROOM ASLEEP AT THIS TIME. NO C/O PAIN TO RIGHT HIP. CALL LIGHT WITHIN REACH. CONTINUE TO MONITOR.
--- NOTE | 2017-12-21 06:00 | NUR ---
PT IN ROOM ALERT AWAKE IN NO ACUTE DISTRESS. NO REACTION TO CURRENT IV ATB MERREM THERAPY. PAIN STILL PRESENT TO RIGHT HIP. NO BLEEDING OR S/S OF INFECTION NOTED. CONTINUE TO MONITOR.
[2017-12-21] MEDS: PANTOPRAZOLE SODIUM 40 MG TABLET.DR PO SCH (06:52)
[2017-12-21] MEDS: MEROPENEM 1 G in IV NORMAL SALINE 100 ML IV SCH ×3 (06:52→21:11)
[2017-12-21] MEDS: OXYCODONE HCL 20 MG TAB.SR.12H PO SCH ×3 (06:53→21:31)
[2017-12-21 08:00] VITALS: BP 122/79
[2017-12-21] MEDS: DOCUSATE SODIUM 100 MG CAPSULE PO SCH ×2 (09:00→21:14)
[2017-12-21] MEDS: CYANOCOBALAMIN 1000 MCG/ML VIAL IM SCH (09:00)
--- NOTE | 2017-12-21 09:00 | NUR ---
PT IN ROOM ALERT AWAKE AND ORIENTED. ABLE TO FOLLOW SIMPLE COMMANDS. STATES PAIN TO RIGHT HIP AREA, DILAUDID 4MG PO WAS GIVEN AT [id number]. NO ACTIVE BLEEDING OR S/S OF INFECTION NOTED TO SURGICAL SITE. DRESSING IS INTACT. DENIES ANY SOB OR CHEST PAIN. SEEN BY UROLOGIS, DISCONTINUE GARCIA CATHETER BY . CONTINUE TO MONITOR. ISOLATION MAINTAINED D/T ESBL OR URINE. CALL LIGHT PLACED WITHIN REACH. Addendum: 12/21/17 at 1603 by ANNALISA KEARNEY RN DILAUDID WAS GIVEN AT 0953.
[2017-12-21] MEDS: TIZANIDINE HCL 4 MG TABLET PO SCH ×3 (09:51→17:08)
[2017-12-21] MEDS: MULTIVITAMINS,THERAPEUTIC TABLET PO SCH (09:51)
[2017-12-21] MEDS: ZINC SULFATE 220 MG CAPSULE PO SCH (09:51)
[2017-12-21] MEDS: BACLOFEN 20 MG TABLET PO SCH ×4 (09:51→21:13)
[2017-12-21] MEDS: ACIDOPHILUS/BULGARICUS CHEW TAB PO SCH ×2 (09:51→21:13)
[2017-12-21] MEDS: NICOTINE 21 MG/24HR PATCH TD SCH (09:52)
[2017-12-21 12:14] LABS: BASOPHILS # (AUTO) 0.1 K/uL (0.0-8.0); EOSINOPHILS # (AUTO) 0.3 K/uL (0.0-0.7); EOSINOPHILS % (AUTO) 4.6 % (0.0-7.0); HEMOGLOBIN 11.3 g/dL (10.9-14.3); LYMPHOCYTES # (AUTO) 1.6 K/uL (20.0-40.0); LYMPHOCYTES % (AUTO) 27.5 % (20.5-51.5); MEAN CORPUSCULAR HEMOGLOBIN 30.8 uug (24.7-32.8); MEAN CORPUSCULAR HGB CONC 33 g/dL (32.3-35.6); MEAN CORPUSCULAR VOLUME 92.8 fL (75.5-95.3); MONOCYTES # (AUTO) 0.4 K/uL (2.0-10.0); MONOCYTES % (AUTO) 7.6 % (0.0-11.0); NEUTROPHILS # (AUTO) 3.4 K/uL (1.8-8.9); NEUTROPHILS % (AUTO) 59.3 % (38.5-71.5); PLATELET COUNT (AUTO) 210 K/uL (179-408); RED BLOOD CELL COUNT(AUTO) 3.66 MIL/uL (3.63-4.92); WHITE BLOOD COUNT (AUTO) 5.8 K/uL (3.8-11.8)
[2017-12-21 13:12] LABS: BILIRUBIN,TOTAL 0.2 mg/dL (0.2-1.0); CREATININE 0.7 mg/dL (0.6-1.3); MAGNESIUM 1.8 mg/dL (1.8-2.4); PHOSPHOROUS 3.9 mg/dL (2.5-4.9); POTASSIUM 3.5 mmol/L (3.5-5.1); TOTAL PROTEIN, SERUM 7.4 g/dL (6.4-8.2)
[2017-12-21] MEDS: RIVAROXABAN 10 MG TABLET PO SCH (17:10)
--- NOTE | 2017-12-21 17:47 | NUR ---
Patient remains in stable condition. Dressing change done on right hip and coccyx area. Showered today. Will continue to monitor for safety and needs.
--- NOTE | 2017-12-21 19:30 | NUR ---
PT RECEIVED IN BED, AWAKE. A/OX4. ABLE TO MAKE NEEDS KNOWN. V/S STABLE. IN NO ACUTE DISTRESS. NO C/O PAIN AT THIS TIME. MIDLINE INTACT AND PATENT, SALINE LOCKED AT THIS TIME. ON RA, TOLERATING WELL. AFEBRILE. ON FIRST STEP MATTRESS, OFFLOADING SACRAL/COCCYX AREA. ALL DRESSINGS C/D/I. HOB ELEVATED. SAFETY MEASURES IMPLEMENTED. CALL LIGHT WITHIN REACH.
[2017-12-21 19:42] VITALS: BP 122/77
--- NOTE | 2017-12-21 21:00 | NUR ---
PT REQUESTS TO TAKE WOUND PHOTOS WITH NEXT DRESSING CHANGE. WILL ENDORSE TO DAYSHIFT NURSE
[2017-12-21] MEDS: SENNOSIDES 1 TABLET PO SCH (21:12)
[2017-12-21] MEDS ORDERED: DOCUSATE SODIUM 100 MG CAPSULE PO ONE (21:22)
--- NOTE | 2017-12-22 02:00 | NUR ---
PATIENT'S MID-LINE NOTED BEING UNFLUSHABLE, DOCTOR MELI NOTIFIED OF FINDINGS, UNABLE TO GIVE MERREM AT THIS TIME, PHARMACY NOTIFIED OF NON ADMINISTRATION OF MERREM, MID-LINE NURSE NOTIFIED AND STATED THAT SOMEONE WOULD COME TO REPLACE MID-LINE.
[2017-12-22] MEDS: MEROPENEM 1 G in IV NORMAL SALINE 100 ML IV SCH ×5 (05:01→20:20)
[2017-12-22] MEDS: HYDROMORPHONE HCL 2 MG TABLET PO PRN ×5 (05:02→20:38)
[2017-12-22] MEDS: PANTOPRAZOLE SODIUM 40 MG TABLET.DR PO SCH (06:04)
--- NOTE | 2017-12-22 06:05 | NUR ---
END OF SHIFT NOTES. PT SLEPT WELL THROUGHOUT SHIFT. IN STABLE CONDITION. IV ABX INFUSED. PAIN MANAGED VERBALIZED BY PATIENTS RELIEF OF RIGHT HIP PAIN. CONTINUES TO HAVE GOOD URINE OUTPUT THROUGHOUT SHIFT. SACRAL/COCCYX OFFLOADING. ON FIRST STEP MATTRESS, HOB ELEVATED. RIGHT HIP DRESSING KEPT C/D/I. CONTACT ISOLATION MAINTAINED. ALL NEEDS ATTENDED. SAFETY MAINTAINED. CALL LIGHT WITHIN REACH.
[2017-12-22] MEDS: DOCUSATE SODIUM 100 MG CAPSULE PO SCH ×2 (09:00→20:19)
[2017-12-22 09:06] VITALS: BP 119/66
[2017-12-22] MEDS: NICOTINE 21 MG/24HR PATCH TD SCH (09:31)
[2017-12-22] MEDS: MULTIVITAMINS,THERAPEUTIC TABLET PO SCH (09:31)
[2017-12-22] MEDS: ACIDOPHILUS/BULGARICUS CHEW TAB PO SCH ×2 (09:32→20:19)
[2017-12-22] MEDS: CYANOCOBALAMIN 1000 MCG/ML VIAL IM SCH (09:32)
[2017-12-22] MEDS: BACLOFEN 20 MG TABLET PO SCH ×4 (09:32→20:19)
[2017-12-22] MEDS: TIZANIDINE HCL 4 MG TABLET PO SCH ×3 (09:32→17:43)
[2017-12-22] MEDS: ZINC SULFATE 220 MG CAPSULE PO SCH (09:32)
[2017-12-22] MEDS ORDERED: SOLIFENACIN SUCCINATE 5 MG TABEC PO SCH (13:45)
[2017-12-22] MEDS: RIVAROXABAN 10 MG TABLET PO SCH (17:43)
--- NOTE | 2017-12-22 18:00 | NUR ---
MID-LINE NURSE CALLED TO VERIFY REPLACEMENT APPOINTMENT MID-LINE, AWAITING RETURN CALL
--- NOTE | 2017-12-22 19:49 | NUR ---
Midline re-insertion canceled, patient's midline access patent- flushed w/ 10 ml NS & it went through, no signs of filtration on the site. Patient awake & alert no SOB denies chest pain. Merrem antibiotic given.
[2017-12-22 20:10] VITALS: BP 136/81
--- NOTE | 2017-12-22 20:15 | NUR ---
Dr. Oh in room, seen & examined the patient.
[2017-12-22] MEDS: OXYBUTYNIN CHLORIDE 5 MG TABLET PO SCH (20:19)
[2017-12-22] MEDS: SENNOSIDES 1 TABLET PO SCH (20:19)
--- NOTE | 2017-12-22 20:39 | NUR ---
Complaining of incision site discomfort. Dilaudid 4mg po givem. Inserted chamorro catheter Fr 18 per MD order. Kept patient comfortable.
[2017-12-23] MEDS: HYDROMORPHONE HCL 2 MG TABLET PO PRN ×5 (01:01→20:09)
[2017-12-23] MEDS: MEROPENEM 1 G in IV NORMAL SALINE 100 ML IV SCH ×3 (06:02→21:54)
[2017-12-23] MEDS: PANTOPRAZOLE SODIUM 40 MG TABLET.DR PO SCH (06:03)
--- NOTE | 2017-12-23 06:45 | NUR ---
No acute resp distress. Attended w/ all needs, medicated for pain PRN.
[2017-12-23 08:15] VITALS: BP 102/60
[2017-12-23] MEDS: OXYBUTYNIN CHLORIDE 5 MG TABLET PO SCH ×2 (09:36→21:51)
[2017-12-23] MEDS: ACIDOPHILUS/BULGARICUS CHEW TAB PO SCH ×2 (09:36→21:51)
[2017-12-23] MEDS: ZINC SULFATE 220 MG CAPSULE PO SCH (09:36)
[2017-12-23] MEDS: TIZANIDINE HCL 4 MG TABLET PO SCH ×3 (09:39→16:27)
[2017-12-23] MEDS: NICOTINE 21 MG/24HR PATCH TD SCH (09:39)
[2017-12-23] MEDS: BACLOFEN 20 MG TABLET PO SCH ×4 (09:39→21:51)
[2017-12-23] MEDS: MULTIVITAMINS,THERAPEUTIC TABLET PO SCH (09:39)
[2017-12-23] MEDS: DOCUSATE SODIUM 100 MG CAPSULE PO SCH ×2 (09:39→21:51)
--- NOTE | 2017-12-23 09:53 | NUR ---
pt complains of pain. pt states that oxycontin was discontinued and requests it to be continued. pt complains of aching pain radiating to the right hip 10/10 adult scale and started in the am on movement. pt given dilaudid for severe pain /10. will continue to monitor.
--- NOTE | 2017-12-23 11:01 | NUR ---
pt. was not given vitamin B12 shot because it was prescribed for 7 days only. no signs of toxicity. notified pharmacy. pharmacy said to discontinue shot. will continue to monitor.
--- NOTE | 2017-12-23 14:01 | NUR ---
INTERDISCIPLINARY TEAM CONFERENCE
[2017-12-23] MEDS: OXYCODONE HCL 20 MG TAB.SR.12H PO SCH ×2 (16:28→21:52)
--- NOTE | 2017-12-23 16:39 | NUR ---
pt seen on rounding. pt complaints of pain. upon assessment pt was complaining of pain 7/10 on right hip to lower back, throbbing and burning. pt states that she has chronic pain. md recommended to give pt oxycontin 20mg q8. will continue to monitor.
[2017-12-23] MEDS: RIVAROXABAN 10 MG TABLET PO SCH (17:22)
--- NOTE | 2017-12-23 18:39 | NUR ---
pt continues to be stable all day.incision site dressing changed. no signs of bleeding. md ordred to continue oxycontin 20mg q8. pt assisted to the bathroom . pt continues to urinate on chamorro. no infection noted. sacrum continues to be intact. will continue to monitor.
--- NOTE | 2017-12-23 19:00 | NUR ---
RECEIVED PATIENT IN BED, ALERT ORIENTED, LEFT UPPER ARM MIDLINE INTACT, CONT ON PAIN MANAGEMENT, GARCIA CATH PATENT DRAINING WITH YELLOW COLOR URINE IN MODERATE AMOUNT, ALL NEEDS ATTENDED, TURN AND REPOSITION, CALL LIGHT WITHIN REACH.
[2017-12-23 20:00] VITALS: BP 136/100
[2017-12-23] MEDS: SENNOSIDES 1 TABLET PO SCH (21:51)
[2017-12-24] MEDS: OXYCODONE HCL 20 MG TAB.SR.12H PO SCH ×4 (05:19→23:00)
[2017-12-24] MEDS: MEROPENEM 1 G in IV NORMAL SALINE 100 ML IV SCH ×3 (05:19→21:29)
[2017-12-24] MEDS: PANTOPRAZOLE SODIUM 40 MG TABLET.DR PO SCH (05:28)
--- NOTE | 2017-12-24 05:42 | NUR ---
PATIENT SLEPT MOST OF THE NIGHT NO SOB NO CHEST PAIN, MIDLINE ON LEFT UPPER ARM, PATENT, INTACT, FLUSHED THE LINE VERY WELL, CONT ON PAIN MANAGEMENT OF THE BACK, TURN AND REPOSITION, GARCIA CATH PATENT, DRAINING WITH YELLOW COLOR URINE IN MODERATE AMOUNT, CONT TO MONITOR.
[2017-12-24 07:30] VITALS: BP 116/66
[2017-12-24] MEDS: NICOTINE 21 MG/24HR PATCH TD SCH (08:50)
[2017-12-24] MEDS: MULTIVITAMINS,THERAPEUTIC TABLET PO SCH (08:50)
[2017-12-24] MEDS: BACLOFEN 20 MG TABLET PO SCH ×4 (08:50→21:29)
[2017-12-24] MEDS: OXYBUTYNIN CHLORIDE 5 MG TABLET PO SCH ×2 (08:50→21:00)
[2017-12-24] MEDS: ACIDOPHILUS/BULGARICUS CHEW TAB PO SCH ×2 (08:50→21:28)
[2017-12-24] MEDS: TIZANIDINE HCL 4 MG TABLET PO SCH ×3 (08:50→17:30)
[2017-12-24] MEDS: HYDROMORPHONE HCL 2 MG TABLET PO PRN ×4 (08:50→21:30)
[2017-12-24] MEDS: DOCUSATE SODIUM 100 MG CAPSULE PO SCH ×2 (08:50→21:28)
[2017-12-24] MEDS: ZINC SULFATE 220 MG CAPSULE PO SCH (08:50)
--- NOTE | 2017-12-24 09:22 | NUR ---
pt seen on rounding. pt premedicated with pain meds prior to therapy. no new injuries noted. no bleeding on incision site. pt given meds whole. chamorro intact. vitals stable. will continue to monitor.
[2017-12-24] MEDS ORDERED: KETOROLAC TROMETHAMINE 30 MG INJ IVP ONE (15:15)
[2017-12-24] MEDS: RIVAROXABAN 10 MG TABLET PO SCH (17:32)
--- NOTE | 2017-12-24 18:52 | NUR ---
pt seen by dr noonan. pt prescribed toradol. pt not given toradol due to allergy to ibuprofen. md notified and said he will see pt tomorrow and give dilaudid prn for pain. md ochoa said that if toradol is given hold xarelto. toradol not given and xarelto given. pt continues to complain of back pain. iv flushed and intact. will endorse to awake overnight counselor nurse.
--- NOTE | 2017-12-24 19:30 | NUR ---
PT RECEIVED IN BED, AWAKE. A/OX4. ABLE TO MAKE NEEDS KNOWN. V/S STABLE. IN NO ACUTE DISTRESS. PT C/O OF RIGHT HIP PAIN 07/07 AT THIS TIME. TO ADMIN PAIN MEDICATION ORDERED. IV INTACT AND PATENT, SALINE LOCKED AT THIS TIME. ON RA, TOLERATING WELL. AFEBRILE. ON FIRST STEP MATTRESS, WITH HOB ELEVATED. OFFLOADING SACRAL/COCCYX REGION. GARCIA INTACT AND PATENT. CONTACT ISOLATION IN PLACE. SAFETY MEASURES IMPLEMENTED. CALL LIGHT WITHIN REACH.
[2017-12-24 20:21] VITALS: BP 136/88
[2017-12-24] MEDS: SENNOSIDES 1 TABLET PO SCH (21:29)
[2017-12-25] MEDS: MEROPENEM 1 G in IV NORMAL SALINE 100 ML IV SCH ×3 (05:00→22:13)
[2017-12-25] MEDS: HYDROMORPHONE HCL 2 MG TABLET PO PRN ×5 (05:01→21:21)
[2017-12-25] MEDS: PANTOPRAZOLE SODIUM 40 MG TABLET.DR PO SCH (06:00)
[2017-12-25] MEDS: OXYCODONE HCL 20 MG TAB.SR.12H PO SCH ×3 (06:00→18:17)
--- NOTE | 2017-12-25 06:00 | NUR ---
END OF SHIFT NOTES. PT SLEPT WELL THROUGHOUT SHIFT. IN STABLE CONDITION. PT C/O OF RIGHT HIP PAIN MANAGED, PAIN MEDICATION ADMIN. IV ABX INFUSED. GARCIA CONT TO BE INTACT AND PATENT. ISOLATION PRECAUTIONS MAINTAINED. ALL NEEDS ATTENDED. SAFETY MAINTAINED. CALL LIGHT WITHIN REACH.
--- NOTE | 2017-12-25 08:09 | NUR ---
Received patient awake, up on bed, verbally responsive, coherent, not in any form of acute distress. She denies any pain or discomfort at this time. Call light placed within reach.
[2017-12-25] MEDS: NICOTINE 14 MG/24HR PATCH TD SCH (08:28)
[2017-12-25] MEDS: OXYBUTYNIN CHLORIDE 5 MG TABLET PO SCH ×2 (08:28→21:23)
[2017-12-25] MEDS: ACIDOPHILUS/BULGARICUS CHEW TAB PO SCH ×2 (08:28→21:23)
[2017-12-25] MEDS: ZINC SULFATE 220 MG CAPSULE PO SCH (08:28)
[2017-12-25] MEDS: BACLOFEN 20 MG TABLET PO SCH ×4 (08:28→21:23)
[2017-12-25] MEDS: MULTIVITAMINS,THERAPEUTIC TABLET PO SCH (08:28)
[2017-12-25] MEDS: TIZANIDINE HCL 4 MG TABLET PO SCH ×3 (08:28→17:05)
[2017-12-25 08:40] VITALS: BP 128/68
[2017-12-25] MEDS: DOCUSATE SODIUM 100 MG CAPSULE PO SCH ×2 (09:10→21:00)
--- NOTE | 2017-12-25 14:10 | NUR ---
Notified Dr. Justin regarding patient's request to have an MRI done because of severe low back pain every time she moves. ordered MRI L spine without contrast. Patient made aware.
--- NOTE | 2017-12-25 15:59 | NUR ---
TEXTED DR. NINA FOR MRI L SPINE APPROVAL.
--- NOTE | 2017-12-25 18:20 | NUR ---
Patient states that pain is relieved with pain medications as ordered to pain level 1-3 but with movement pain becomes severe so she wants to get her PRN pain medication frequently and avoids movement.
[2017-12-25] MEDS: RIVAROXABAN 10 MG TABLET PO SCH (18:27)
--- NOTE | 2017-12-25 18:54 | NUR ---
Patient seen by Dr. Tamayo with order for Robaxin 500mg IV Q8hrs PRN and Decadron 4mg IV Q8hrs x 2 days. Order carried out. Patient aware.
[2017-12-25] MEDS ORDERED: METHOCARBAMOL 1000 MG/10 ML VIAL IV PRN (19:00)
--- NOTE | 2017-12-25 19:40 | NUR ---
Patient received from day shift nurse. Patient laying in bed, awake, alert and with no signs of sob, or acute distress. Pertinent assessment completed. Vital signs taken at start of shift & stable. Complained of pain 06/06, explained to patient pain meds were given 1-2 hrs ago. Call light within reach of pt. will continue to monitor pt through shift
[2017-12-25 20:51] VITALS: BP 140/94
[2017-12-25] MEDS: SENNOSIDES 1 TABLET PO SCH (21:00)
[2017-12-25] MEDS ORDERED: CYCLOBENZAPRINE HCL 10 MG TABLET ONE (21:18)
[2017-12-25] MEDS: CYCLOBENZAPRINE HCL 10 MG TABLET PO PRN (22:13)
[2017-12-25] MEDS: DEXAMETHASONE SOD PHOSPHATE 4 MG INJ IV SCH (22:13)
[2017-12-26] MEDS: OXYCODONE HCL 20 MG TAB.SR.12H PO SCH ×4 (00:29→17:30)
[2017-12-26] MEDS: MEROPENEM 1 G in IV NORMAL SALINE 100 ML IV SCH ×3 (05:59→22:16)
[2017-12-26] MEDS: DEXAMETHASONE SOD PHOSPHATE 4 MG INJ IV SCH ×3 (05:59→22:16)
[2017-12-26] MEDS: PANTOPRAZOLE SODIUM 40 MG TABLET.DR PO SCH (06:47)
[2017-12-26] MEDS: CYCLOBENZAPRINE HCL 10 MG TABLET PO PRN (06:47)
[2017-12-26 07:46] VITALS: BP 122/69
[2017-12-26 08:00] VITALS: BP 147/81
[2017-12-26] MEDS: MULTIVITAMINS,THERAPEUTIC TABLET PO SCH (08:29)
[2017-12-26] MEDS: ACIDOPHILUS/BULGARICUS CHEW TAB PO SCH ×2 (08:30→21:21)
[2017-12-26] MEDS: OXYBUTYNIN CHLORIDE 5 MG TABLET PO SCH (08:30)
[2017-12-26] MEDS: BACLOFEN 20 MG TABLET PO SCH ×4 (08:30→21:21)
[2017-12-26] MEDS: TIZANIDINE HCL 4 MG TABLET PO SCH ×3 (08:30→17:29)
[2017-12-26] MEDS: DOCUSATE SODIUM 100 MG CAPSULE PO SCH ×2 (08:30→21:21)
[2017-12-26] MEDS: ZINC SULFATE 220 MG CAPSULE PO SCH (08:30)
[2017-12-26] MEDS: HYDROMORPHONE HCL 2 MG TABLET PO PRN ×3 (08:31→21:26)
[2017-12-26] MEDS: NICOTINE 14 MG/24HR PATCH TD SCH (08:39)
--- NOTE | 2017-12-26 11:44 | NUR ---
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 Report given to EMT personnel.
[2017-12-26] MEDS: RIVAROXABAN 10 MG TABLET PO SCH (17:33)
--- NOTE | 2017-12-26 19:17 | NUR ---
Pt sitting in semi-fowlers position in bed, with visiting at the bedside. All comfort and safety measures met. All personal belongings and call light within reach. Pt clean and dry. Pt reports pain being manageable through scheduled and PRN medications. Will endorse to on coming mini shifter.
--- NOTE | 2017-12-26 19:50 | NUR ---
Patient in bed, awake, alert and with at bedside. shift report done at bedside. Vital signs taken and recorded, with no signs of sob, or acute distress. Denies of pain at this moment. Pertinent assessment completed. Rankin catheter draining well with clear yellow urine.Safety measures provided, bed in low position x2 side rails up. call light placed within reach of pt. will continue to monitor pt through shift.
[2017-12-26] MEDS: SENNOSIDES 1 TABLET PO SCH (21:21)
[2017-12-27] MEDS: OXYCODONE HCL 20 MG TAB.SR.12H PO SCH ×4 (00:07→18:06)
[2017-12-27] MEDS: MEROPENEM 1 G in IV NORMAL SALINE 100 ML IV SCH ×3 (05:33→21:11)
[2017-12-27] MEDS: DEXAMETHASONE SOD PHOSPHATE 4 MG INJ IV SCH ×2 (05:44→14:15)
[2017-12-27] MEDS: PANTOPRAZOLE SODIUM 40 MG TABLET.DR PO SCH (06:27)
[2017-12-27 07:35] VITALS: BP 126/66
[2017-12-27] MEDS: TIZANIDINE HCL 4 MG TABLET PO SCH ×3 (09:39→18:07)
[2017-12-27] MEDS: MULTIVITAMINS,THERAPEUTIC TABLET PO SCH (09:39)
[2017-12-27] MEDS: ACIDOPHILUS/BULGARICUS CHEW TAB PO SCH ×2 (09:39→21:09)
[2017-12-27] MEDS: TOLTERODINE LA 2 MG CAP.SR.24H PO SCH (09:40)
[2017-12-27] MEDS: NICOTINE 14 MG/24HR PATCH TD SCH (09:40)
[2017-12-27] MEDS: BACLOFEN 20 MG TABLET PO SCH ×4 (09:40→21:09)
[2017-12-27] MEDS: ZINC SULFATE 220 MG CAPSULE PO SCH (09:41)
--- NOTE | 2017-12-27 10:05 | NUR ---
SBAR report received near bedside, board updated. Pt assessed, pain reported to be managed with scheduled medication as ordered. No SOB or acute distress noted at this time. Pt compliant with all routine morning medications. All safety and comfort measures met. Bed in locked and low position, with side rails up x2. Personal belongings and call light placed within reach. Plan for today discussed with Pt especially the need for PT and OT to be postponed until being reassessed by or Dr. Waldron for approval. Will continue to monitor and follow up with Dr. Waldron regarding need for Neurology consult.
[2017-12-27] MEDS: DOCUSATE SODIUM 100 MG CAPSULE PO SCH ×2 (10:15→21:09)
[2017-12-27] MEDS: HYDROMORPHONE HCL 2 MG TABLET PO PRN ×3 (10:16→22:49)
[2017-12-27] MEDS: RIVAROXABAN 10 MG TABLET PO SCH (18:31)
--- NOTE | 2017-12-27 18:50 | NUR ---
Pt sitting up comfortably in bed watching TV. Pt seen by ELZBIETA Francis, see notes for further evaluation. Pt reports pain 6/10, Dilaudid administered per PRN orders. Pt still not cleared for PT, pending Spinal surgical consult or Dr. Tamayo approval to continue OT and PT. made aware. Pt clean and dry. Pt ate 100% of dinner. Call light and personal items within reach. Pt compliant with all routine medications. Will continue to monitor and endorse to oncoming production shift supervisor.
--- NOTE | 2017-12-27 19:02 | NUR ---
Pt seen by Dr. Roni MARTÍNEZ approved Pt to continue participating with PT and OT starting tomorrow. Pt made aware and plan of care discussed. Will endorse to shift supervisor film processing.
--- NOTE | 2017-12-27 19:30 | NUR ---
Patient received from day shift nurse. Shift report at bedside. Patient currently lying in bed comfortably with no signs of pain, sob, or acute distress. A/O x4 & able to make needs known. Pertinent assessment completed. Vital signs WNL. Patient noted with left upper arm midline clean & patent. Rankin cath bag checked off the floor & below the level of the bladder. Urine flowing through to bag. Call light placed within reach of patient. Will continue to monitor patient through shift.
[2017-12-27 20:27] VITALS: BP 147/86
[2017-12-27] MEDS: SENNOSIDES 1 TABLET PO SCH (21:09)
[2017-12-28] MEDS: OXYCODONE HCL 20 MG TAB.SR.12H PO SCH ×4 (00:09→16:37)
[2017-12-28] MEDS: MEROPENEM 1 G in IV NORMAL SALINE 100 ML IV SCH ×3 (05:13→21:31)
--- NOTE | 2017-12-28 05:30 | NUR ---
Patient stable through shift. no acute changes occurred. Vital signs WNL. Slept intermittently through the shift. All needs attended to. All meds administered as ordered per MD. Safety measures implemented. Call light within reach of patient. Will endorse to day shift nurse.
[2017-12-28] MEDS: PANTOPRAZOLE SODIUM 40 MG TABLET.DR PO SCH (06:03)
[2017-12-28 08:31] VITALS: BP 135/78
[2017-12-28] MEDS: DOCUSATE SODIUM 100 MG CAPSULE PO SCH ×2 (09:17→21:30)
[2017-12-28] MEDS: BACLOFEN 20 MG TABLET PO SCH ×3 (09:17→16:37)
[2017-12-28] MEDS: TIZANIDINE HCL 4 MG TABLET PO SCH ×3 (09:17→16:37)
[2017-12-28] MEDS: ZINC SULFATE 220 MG CAPSULE PO SCH (09:18)
[2017-12-28] MEDS: MULTIVITAMINS,THERAPEUTIC TABLET PO SCH (09:18)
[2017-12-28] MEDS: NICOTINE 14 MG/24HR PATCH TD SCH (09:18)
[2017-12-28] MEDS: ACIDOPHILUS/BULGARICUS CHEW TAB PO SCH ×2 (09:18→21:30)
[2017-12-28] MEDS: TOLTERODINE LA 2 MG CAP.SR.24H PO SCH (09:18)
[2017-12-28] MEDS: CYCLOBENZAPRINE HCL 10 MG TABLET PO PRN (09:19)
[2017-12-28] MEDS: HYDROMORPHONE HCL 2 MG TABLET PO PRN ×5 (09:26→22:41)
[2017-12-28] MEDS: RIVAROXABAN 10 MG TABLET PO SCH (16:38)
--- NOTE | 2017-12-28 19:55 | NUR ---
Received pt in bed, awake and alert; verbally responsive and able to make needs known. at bedside. No acute distress noted. Denies pain or discomfort currently. Rankin cath noted to be draining well with clear, yellow urine. Denies discomfort. Midline patent and intact on left upper arm. All safety measures and fall precautions maintained. Call light and all personal belongings within reach. Will continue to monitor.
[2017-12-28 20:19] VITALS: BP 135/86
[2017-12-28] MEDS: DEXAMETHASONE SOD PHOSPHATE 4 MG INJ IV SCH (21:30)
[2017-12-28] MEDS: CYCLOBENZAPRINE HCL 10 MG TABLET PO SCH (21:30)
[2017-12-28] MEDS: SENNOSIDES 1 TABLET PO SCH (21:30)
[2017-12-28] MEDS: ZOLPIDEM 5 MG TABLET PO PRN (22:42)
[2017-12-29] MEDS: OXYCODONE HCL 10 MG TAB.SR.12H PO SCH ×4 (00:06→16:55)
[2017-12-29] MEDS: OXYCODONE HCL 20 MG TAB.SR.12H PO SCH ×4 (00:06→16:55)
--- NOTE | 2017-12-29 06:10 | NUR ---
Pt slept comfortably throughout shift. No acute distress noted. Verbally responsive and able to make needs known. Denies pain or discomfort. All needs anticipated and met accordingly. Kept clean and dry for comfort. All due medications given as ordered per MD and tolerated well. Medicated for pain PRN per MD order, well tolerated. Midline patent and intact. Rankin catheter draining well with clear, yellow urine. Call light and all personal belongings within reach. All safety measures and fall precautions maintained. Will continue to monitor. Will endorse to day shift.
[2017-12-29] MEDS: PANTOPRAZOLE SODIUM 40 MG TABLET.DR PO SCH (06:59)
[2017-12-29] MEDS: MEROPENEM 1 G in IV NORMAL SALINE 100 ML IV SCH (06:59)
--- NOTE | 2017-12-29 08:39 | NUR ---
patient noted sitting up in bed, complains of back pain and request pain medicine, no signs of distress, call light in reach, bed locked and in lowest position
[2017-12-29] MEDS: ACIDOPHILUS/BULGARICUS CHEW TAB PO SCH ×2 (09:02→21:13)
[2017-12-29] MEDS: MULTIVITAMINS,THERAPEUTIC TABLET PO SCH (09:02)
[2017-12-29] MEDS: TIZANIDINE HCL 4 MG TABLET PO SCH ×3 (09:03→16:54)
[2017-12-29] MEDS: DEXAMETHASONE SOD PHOSPHATE 4 MG INJ IV SCH (09:03)
[2017-12-29] MEDS: ZINC SULFATE 220 MG CAPSULE PO SCH (09:03)
[2017-12-29] MEDS: BACLOFEN 10 MG TABLET PO SCH ×3 (09:03→16:54)
[2017-12-29] MEDS: DOCUSATE SODIUM 100 MG CAPSULE PO SCH ×2 (09:03→21:13)
[2017-12-29] MEDS: TOLTERODINE LA 2 MG CAP.SR.24H PO SCH (09:03)
[2017-12-29] MEDS: CYCLOBENZAPRINE HCL 10 MG TABLET PO SCH ×4 (09:03→21:14)
[2017-12-29] MEDS: NICOTINE 14 MG/24HR PATCH TD SCH (09:04)
[2017-12-29] MEDS: HYDROMORPHONE HCL 2 MG TABLET PO PRN ×3 (09:05→20:08)
[2017-12-29 11:39] VITALS: BP 130/90
[2017-12-29] MEDS: RIVAROXABAN 10 MG TABLET PO SCH (16:59)
--- NOTE | 2017-12-29 20:00 | NUR ---
Received pt in bed, AAO x 4 watching television. Verbally responsive and able to make needs known. Complaining of pain in lower back 6/10 pain scale, stating it "hurts with movement". Medicated with pain medication PRN per MD order. Well tolerated. All safety measures and fall precautions Will continue to monitor.
--- NOTE | 2017-12-29 20:05 | NUR ---
Midline on left upper arm patent and intact. Rankin cath noted to be draining well with clear, yellow urine. Denies pain or discomfort. Safety maintained. Will continue to monitor.
[2017-12-29 20:29] VITALS: BP 139/88
[2017-12-29] MEDS: SENNOSIDES 1 TABLET PO SCH (21:13)
[2017-12-29] MEDS: ZOLPIDEM 5 MG TABLET PO PRN (21:15)
[2017-12-30] MEDS: OXYCODONE HCL 10 MG TAB.SR.12H PO SCH ×5 (00:13→23:18)
[2017-12-30] MEDS: OXYCODONE HCL 20 MG TAB.SR.12H PO SCH ×5 (00:13→23:18)
--- NOTE | 2017-12-30 06:12 | NUR ---
Pt slept comfortably throughout the shift, no complaints of pain or discomfort. No acute distress. All due medications given as ordered, well tolerated. Kept clean and dry. All needs anticipated and met accordingly. All safety measures and fall precautions maintained. Call light and all personal belongings within reach. Will continue to monitor.
[2017-12-30] MEDS: PANTOPRAZOLE SODIUM 40 MG TABLET.DR PO SCH (06:44)
[2017-12-30] MEDS ORDERED: DEXAMETHASONE 4 MG TABLET PO SCH (09:00)
[2017-12-30] MEDS ORDERED: DEXAMETHASONE SOD PHOSPHATE 4 MG INJ IV SCH (09:00)
[2017-12-30] MEDS: ACIDOPHILUS/BULGARICUS CHEW TAB PO SCH ×2 (09:02→20:08)
[2017-12-30 09:03] VITALS: BP 127/64
[2017-12-30] MEDS: TIZANIDINE HCL 4 MG TABLET PO SCH ×3 (09:03→17:23)
[2017-12-30] MEDS: HYDROMORPHONE HCL 2 MG TABLET PO PRN ×3 (09:03→20:08)
[2017-12-30] MEDS: CYCLOBENZAPRINE HCL 10 MG TABLET PO SCH ×4 (09:03→20:07)
[2017-12-30] MEDS: MULTIVITAMINS,THERAPEUTIC TABLET PO SCH (09:03)
[2017-12-30] MEDS: ZINC SULFATE 220 MG CAPSULE PO SCH (09:03)
[2017-12-30] MEDS: BACLOFEN 10 MG TABLET PO SCH ×3 (09:03→17:23)
[2017-12-30] MEDS: NICOTINE 14 MG/24HR PATCH TD SCH (09:03)
[2017-12-30] MEDS: DOCUSATE SODIUM 100 MG CAPSULE PO SCH ×2 (09:03→20:07)
[2017-12-30] MEDS: TOLTERODINE LA 2 MG CAP.SR.24H PO SCH (09:04)
--- NOTE | 2017-12-30 09:41 | NUR ---
pt seen on rounding. pt continues to be alert and oriented. isolation precautions implemented. iv site intact. vitals stable. pt complaints of pain on back. pt given pain meds prn. pt given michael meds. no aspirations noted. will continue to monitor.
[2017-12-30 12:19] LABS: *BILIRUBIN,URIN NEGATIVE (NEGATIVE); *BLOOD, URINE NEGATIVE (NEGATIVE); *CLARITY,URINE CLEAR (CLEAR); *COLOR,URINE YELLOW (YELLOW); *KETONES,URINE NEGATIVE (NEGATIVE); *PROTEIN,URINE NEGATIVE (NEGATIVE); *UROBILINOGEN,URINE 0.2 E.U./dl (NORMAL); LEUKOCYTE ESTERASE ,URINE NEGATIVE (NEGATIVE); NITRITE, URINE NEGATIVE (NEGATIVE); PH,URINE 5.5 (5.0-8.0); UGLUCOSE NEGATIVE (NEGATIVE)
[2017-12-30 12:26] LABS: BACTERIA,URINE FEW /HPF (NONE SEEN); RBC,URINE 0-3 /HPF (0-3); SQUAMOUS EPITHELIAL CELL,UR FEW /HPF (NONE SEEN); WBC,URINE 0-3 /HPF (0-3)
--- NOTE | 2017-12-30 13:51 | NUR ---
INTERDISCIPLINARY TEAM CONFERENCE
[2017-12-30] MEDS: RIVAROXABAN 10 MG TABLET PO SCH (17:25)
--- NOTE | 2017-12-30 18:37 | NUR ---
pt stable throuhgout the day. pt seen by ECONOMICS TEACHER. tennis court attendant aware of results of UA. no new orders. pain managed throughout the day. vitals stable. no new injuries. will endorse to police shift commander nurse.
--- NOTE | 2017-12-30 19:35 | NUR ---
Pt resting comfortably in bed. AAO x4. No acute distress noted. C/o pain on the back, will f/u with proper intervention. Left upper arm midline, patent and intact. Rankin catheter intact and draining clear yellow colored urine. Safety measures maintained. Bed alarm on. Call light and personal belongings within reach. Will continue to monitor.
[2017-12-30] MEDS: SENNOSIDES 1 TABLET PO SCH (20:07)
[2017-12-30] MEDS: ZOLPIDEM 5 MG TABLET PO PRN (20:08)
[2017-12-30 20:36] VITALS: BP 155/86
[2017-12-30] MEDS: DEXAMETHASONE SOD PHOSPHATE 4 MG INJ IV SCH (21:35)
--- NOTE | 2017-12-31 05:47 | NUR ---
Pt slept intermittently at night. visited last night. Meds given as ordered. All needs attended to promptly. Will endorse to day shift RN. Continue to monitor.
[2017-12-31] MEDS: OXYCODONE HCL 20 MG TAB.SR.12H PO SCH ×3 (06:51→17:30)
[2017-12-31] MEDS: PANTOPRAZOLE SODIUM 40 MG TABLET.DR PO SCH (06:51)
[2017-12-31] MEDS: OXYCODONE HCL 10 MG TAB.SR.12H PO SCH ×3 (06:51→17:31)
--- NOTE | 2017-12-31 07:40 | NUR ---
Received pt in bed, AAO x 4 watching television. Verbally responsive and able to make needs known.no c/o pain noted, Will continue to monitor. call light with in reach
[2017-12-31] MEDS: MULTIVITAMINS,THERAPEUTIC TABLET PO SCH (08:11)
[2017-12-31] MEDS: NICOTINE 14 MG/24HR PATCH TD SCH (08:11)
[2017-12-31] MEDS: CYCLOBENZAPRINE HCL 10 MG TABLET PO SCH ×4 (08:12→21:22)
[2017-12-31] MEDS: ACIDOPHILUS/BULGARICUS CHEW TAB PO SCH ×2 (08:12→21:23)
[2017-12-31] MEDS: BACLOFEN 10 MG TABLET PO SCH ×3 (08:12→17:27)
[2017-12-31] MEDS: ZINC SULFATE 220 MG CAPSULE PO SCH (08:12)
[2017-12-31] MEDS: DOCUSATE SODIUM 100 MG CAPSULE PO SCH ×2 (08:12→21:21)
[2017-12-31] MEDS: TIZANIDINE HCL 4 MG TABLET PO SCH ×3 (08:12→17:27)
[2017-12-31] MEDS: TOLTERODINE LA 2 MG CAP.SR.24H PO SCH (08:13)
[2017-12-31] MEDS: HYDROMORPHONE HCL 2 MG TABLET PO PRN ×4 (08:28→22:52)
[2017-12-31] MEDS: DEXAMETHASONE SOD PHOSPHATE 4 MG INJ IV SCH ×2 (08:43→21:23)
--- NOTE | 2017-12-31 10:00 | NUR ---
Pt resting comfortably in bed. AAO x4. No acute distress noted. C/o pain on the back, . Rankin catheter intact and draining clear yellow colored urine. Safety measures maintained. Bed alarm on. Call light and personal belongings within reach. Will continue to monitor.
[2017-12-31 10:47] VITALS: BP 122/68
[2017-12-31] MEDS: RIVAROXABAN 10 MG TABLET PO SCH (17:32)
--- NOTE | 2017-12-31 20:21 | NUR ---
aaox4 oob to bedside commode with assist. patient has an ORIF of the right hip. needs attended. right hip dressing clean dry and intact. on pain management. denies any pain at this time. kept comfortable. On contact isolation, patient has ESBL in urine. Rankin catheter intact draining yellow urine. I & O monitor. Will monitor patient. fall precautions maintained. call zimmer within reach. No acute distress noted.
[2017-12-31 20:58] VITALS: BP 144/87
[2017-12-31] MEDS: SENNOSIDES 1 TABLET PO SCH (21:21)
[2017-12-31] MEDS: ZOLPIDEM 5 MG TABLET PO PRN (22:49)
[2018-01-01] MEDS: OXYCODONE HCL 10 MG TAB.SR.12H PO SCH ×5 (00:07→23:49)
[2018-01-01] MEDS: OXYCODONE HCL 20 MG TAB.SR.12H PO SCH ×5 (00:07→23:50)
--- NOTE | 2018-01-01 05:41 | NUR ---
slept at ;patricia intervals. no acute distress noted. chamorro catheter draining yellow urine.needs attended. pain meds given as scheduled. contact isolation maintained.
[2018-01-01] MEDS: PANTOPRAZOLE SODIUM 40 MG TABLET.DR PO SCH (06:10)
[2018-01-01 07:50] VITALS: BP 133/84
[2018-01-01] MEDS: NICOTINE 14 MG/24HR PATCH TD SCH (08:13)
[2018-01-01] MEDS: ACIDOPHILUS/BULGARICUS CHEW TAB PO SCH ×2 (08:14→21:20)
[2018-01-01] MEDS: ZINC SULFATE 220 MG CAPSULE PO SCH (08:14)
[2018-01-01] MEDS: CYCLOBENZAPRINE HCL 10 MG TABLET PO SCH ×4 (08:14→21:20)
[2018-01-01] MEDS: MULTIVITAMINS,THERAPEUTIC TABLET PO SCH (08:14)
[2018-01-01] MEDS: BACLOFEN 10 MG TABLET PO SCH ×3 (08:14→16:11)
[2018-01-01] MEDS: DOCUSATE SODIUM 100 MG CAPSULE PO SCH ×2 (08:14→21:20)
[2018-01-01] MEDS: TOLTERODINE LA 2 MG CAP.SR.24H PO SCH (08:15)
[2018-01-01] MEDS: TIZANIDINE HCL 4 MG TABLET PO SCH ×3 (08:15→16:12)
[2018-01-01] MEDS: HYDROMORPHONE HCL 2 MG TABLET PO PRN ×4 (08:21→21:59)
[2018-01-01] MEDS: DEXAMETHASONE SOD PHOSPHATE 4 MG INJ IV SCH ×2 (08:25→21:20)
--- NOTE | 2018-01-01 16:18 | NUR ---
PT WATCHING TV WITH HER ,ALL NEEDS MET ,CALL LIGHT WITH IN REACH.
[2018-01-01] MEDS: RIVAROXABAN 10 MG TABLET PO SCH (17:07)
[2018-01-01] MEDS: SENNOSIDES 1 TABLET PO SCH (21:20)
[2018-01-01] MEDS: ZOLPIDEM 5 MG TABLET PO PRN (21:25)
[2018-01-01 21:30] VITALS: BP 136/87
[2018-01-01 21:39] VITALS: BP 136/87
--- NOTE | 2018-01-02 02:21 | NUR ---
slept well. no acute distress noted. needs attended. kept comfortable. making needs known. tolerated po meds well. pain meds given as needed. chamorro catheter draining yellow urine. I & O monitor.
[2018-01-02] MEDS: OXYCODONE HCL 20 MG TAB.SR.12H PO SCH ×2 (06:12→13:42)
[2018-01-02] MEDS: PANTOPRAZOLE SODIUM 40 MG TABLET.DR PO SCH (06:12)
[2018-01-02] MEDS: OXYCODONE HCL 10 MG TAB.SR.12H PO SCH ×2 (06:12→12:04)
[2018-01-02 07:11] LABS: CREATININE 0.6 mg/dL (0.6-1.3); POTASSIUM 3.7 mmol/L (3.5-5.1)
[2018-01-02 08:00] VITALS: BP 130/86
[2018-01-02] MEDS: DOCUSATE SODIUM 100 MG CAPSULE PO SCH (09:14)
[2018-01-02] MEDS: TIZANIDINE HCL 4 MG TABLET PO SCH ×3 (09:14→16:42)
[2018-01-02] MEDS: BACLOFEN 10 MG TABLET PO SCH ×3 (09:14→16:42)
[2018-01-02] MEDS: MULTIVITAMINS,THERAPEUTIC TABLET PO SCH (09:14)
[2018-01-02] MEDS: ZINC SULFATE 220 MG CAPSULE PO SCH (09:14)
[2018-01-02] MEDS: ACIDOPHILUS/BULGARICUS CHEW TAB PO SCH (09:14)
[2018-01-02] MEDS: CYCLOBENZAPRINE HCL 10 MG TABLET PO SCH ×3 (09:15→16:42)
[2018-01-02] MEDS: TOLTERODINE LA 2 MG CAP.SR.24H PO SCH (09:15)
[2018-01-02] MEDS: DEXAMETHASONE SOD PHOSPHATE 4 MG INJ IV SCH (09:19)
[2018-01-02] MEDS: HYDROMORPHONE HCL 2 MG TABLET PO PRN ×3 (09:21→16:05)
[2018-01-02] MEDS: NICOTINE 14 MG/24HR PATCH TD SCH (09:22)
--- NOTE | 2018-01-02 12:36 | NUR ---
PT COMPLAINING OF PAIN 07/07. SCHEDULED OXYCODONE 20MG NOT AVAILABLE. REQUESTED FOR REFILL WITH [facility] IN PHARMACY. PT REQUESTED FOR DILAUDID 4MG PRN. PER JUAN DIEGO RUBALCAVA TO ADMINISTER 1HR PRIOR TO NEXT AVAILABLE DOSE. CHARGE NURSE IS AWARE.
--- NOTE | 2018-01-02 14:45 | NUR ---
PT SET FOR DISCHARGE. EXPRESSED CONCERN RE: PAIN MEDICATION AVAILABILITY WHEN SENT HOME. EXPLAINED POLICY AND PROCEDURE. RECOMMENDED THAT DROP OFF PRESCRIPTION AT PREFERRED HOME PHARMACY. PT STATED THAT SHE WILL STAY TILL HER NEXT DOSE OF DILAUDID 4MG PRN. NURSE PIN INSERTER AND CHARGE NURSE IS AWARE
--- NOTE | 2018-01-02 16:00 | NUR ---
VS BP: 132/80, HR: 88, RESP: 18, TEMP: 97.8, O2: 99%. PT RECEIVED DILAUDID 4MG PRN PER NURSE CHIEF OF POLICE APPROVAL DT PAIN 07/07. WILL CONTINUE TO MONITOR.
--- NOTE | 2018-01-02 16:45 | NUR ---
RECEIVED PT AWAKE, ALERT AND ORIENTED X4. VS BP: 125/78, HR: 76, RESP: 18, TEMP: 97.8, O2: 98% ROOM AIR, PAIN: 4/10. NO SOB. COMPLETED SKIN ASSESSMENT. PLEASE SEE CHART. PT WAS DISCHARGE WITH TEACHING NOTES AND FOLLOW UP APPOINTMENTS. NO FURTHER CONCERNS NOTED. PICKED UP PT.
== END 2018-01-02 16:45 | disposition home health service (06) | DRG 560 ==
PROVIDERS: ADMIT Physical Medicine & Rehabilitation Pain Medicine; ATTEND Physical Medicine & Rehabilitation Pain Medicine
DX: S72.141D Displaced intertrochanteric fracture of right femur, subsequent encounter for closed fracture with routine healing (principal); G82.20 Paraplegia, unspecified; E44.0 Moderate protein-calorie malnutrition; E83.42 Hypomagnesemia; N31.9 Neuromuscular dysfunction of bladder, unspecified; M41.9 Scoliosis, unspecified; N39.0 Urinary tract infection, site not specified; Z16.12 Extended spectrum beta lactamase (ESBL) resistance; G89.29 Other chronic pain; D18.09 Hemangioma of other sites; D63.8 Anemia in other chronic diseases classified elsewhere; F17.210 Nicotine dependence, cigarettes, uncomplicated; F32.9 Major depressive disorder, single episode, unspecified; S24.109S Unspecified injury at unspecified level of thoracic spinal cord, sequela; M51.26 Other intervertebral disc displacement, lumbar region; W05.0XXD Fall from non-moving wheelchair, subsequent encounter; R35.0 Frequency of micturition; R26.9 Unspecified abnormalities of gait and mobility; R16.0 Hepatomegaly, not elsewhere classified; Z88.0 Allergy status to penicillin; Z88.8 Allergy status to other drugs, medicaments and biological substances; D64.9 Anemia, unspecified; M54.5 Low back pain
CPT/HCPCS: 36415; 72148; 82306; 83735; 84100; 84443; 85025; 87077; 87086; 92526; 92610; 97110; 97112; 97116; 97165; 97530; 97535; A4663; J1100; J2185; J3420; J3490